=== PATIENT | male | born 1945 | race Caucasian/White ===

== ENCOUNTER 2025-05-26 17:29 | Inpatient (IN) ==
--- NOTE | 2025-05-26 17:57 | Emergency Department Note ---
Impression & Plan Acute decompensated heart failure, Ventricular bigeminy, Pulmonary edema ED Provider Note NAME: OLEKSANDR EDWARDS AGE: 79 SEX: M : 1945 ARRIVES VIA: Walk-In INFORMANT: Patient, ED PROVIDER(S): Pablo Pastor DO CHIEF COMPLAINT: dyspnea HPI: This is a 79-year-old male with the PMHx of ventricular bigeminy, hypertension, hyperlipidemia, hypothyroidism and prostate cancer presenting to [facility] for further evaluation of dyspnea. Patient is accompanied by who provide additional history. Patient states that he has had worsening dyspnea over the last week. Patient reports weight gain of approximately 6 pounds. He reports worsening lower extremity edema. Patient does report some chest tightness over his sternum. 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 He is currently managed with metoprolol succinate 50 mg daily as well as amiodarone 100 mg daily. He follows with cardiology ([facility]) as an outpatient. Patient has not had a cardiac catheterization in the past. Patient reports lightheadedness but no syncopal episodes. Patient denies any recent illness. They deny fever or chills. No cough or congestion. Denies chest pain or palpitations. They deny abdominal pain, nausea and vomiting. No urinary complaints. No recent changes in bowel movements. Patient denies recent changes in medications or OTC supplements. Patient offers no other complaints, today. ADDITIONAL HISTORY OBTAINED: Per HPI Chronic Medical/Social Conditions Affecting Care: Per HPI PAST MEDICAL HISTORY: See Below PAST SURGICAL HISTORY: See Below FAMILY HISTORY: See Below SOCIAL HISTORY: See Below HOME MEDICATIONS: See Below ALLERGIES: See Below VITALS: See Below PHYSICAL EXAMINATION: GENERAL: Sitting up in bed, alert, well appearing, well nourished, no distress, non-toxic EYE EXAM: normal conjunctiva. OROPHARYNX: no exudate, no erythema, lips, buccal mucosa, and tongue normal and mucous membranes are moist NECK: supple, no nuchal rigidity, no adenopathy, non-tender LUNGS: Rales in the bases. Normal chest wall mechanics HEART: no murmurs, bradycardic rate, regular rhythm ABDOMEN: abdomen soft, non-tender, normo-active bowel sounds, no masses, no rebound or guarding. BACK: Back is symmetrical on inspection and there is no deformity, no midline tenderness, no CVA tenderness. SKIN: no rashes and no bruising UPPER EXTREMITIES: upper extremities are grossly normal. LOWER EXTREMITIES: 3+ pitting edema in the LEs. Warm and well perfused. NEURO EXAM: Normal sensorium, GCS 15, normal speech, no gross weakness of arms, no gross weakness of legs. MEDICAL DECISION MAKING: Differential diagnoses includes but not limited to CHF exacerbation, cardiogenic shock, ACS, stable vs unstable angina, dysrhythmia, viral URI, pneumonia, pericarditis, pneumothorax, costochondritis, MSK strain, PE, hypertensive emergency, psychological causes, esophageal reflux, gastritis In summary, this is a 79 year old male who presented with dyspnea. Differential as above. Nursing notes and pertinent past medical records reviewed. Vital signs reviewed and the patient is bradycardic but otherwise afebrile and hemodynamically stable. Patient is not perfusing PVCs. Resting heart rate is in the 30s. History and presentation revealed Patient does have a known history of ventricular bigeminy and is currently on medication control. Patient has had worsening condition of his dyspnea and orthopnea over the past week with weight gain and lower extremity edema. History and physical examination are consistent with a CHF exacerbation. I do not find evidence of cardiogenic shock. Plan for labs and chest x-ray. Will obtain a bedside ultrasound. Patient may benefit from IV diuresis. Given dyspnea and chest tightness, will load with ASA. Diagnostics interpreted by me include EKG and cardiac monitoring as listed below: -Cardiac Monitoring: An order was placed for continuous cardiac monitoring. The monitor shows a rate of 60-70s with ventricular bigeminy. -ECG: EKG independently interpreted by me reveals sinus rhythm at a ventricular rate of 71 bpm. Ventricular bigeminy present. Right bundle branch block present. There is a first-degree AV block present. No significant ST segment changes to suggest STEMI. Patient completed laboratory studies and imaging. Bedside ultrasound independently obtained and interpreted by me reveals mildly reduced ejection fraction with poor windows. Could not appreciate large pericardial effusion. There are B-lines present. IVC is distended. Findings are consistent possible heart failure exacerbation given the patient's symptoms and complaints. Patient is in ventricular bigeminy and he is only perfusing approximately 35 bpm. He is warm and well-perfused and does not appear in shock. Suspect he is likely having heart failure. Do not suspect cardiogenic shock. He is hypertensive. Patient's mentation is normal. He has not had syncopal episodes. His symptoms include dyspnea, orthopnea, chest tightness and lightheadedness. Will collect labs and chest x-ray prior to speaking with cardiology with recommendations. As far as medications at her morning appointment is diuretics but does take amiodarone as well as metoprolol succinate. Results independently interpreted by me are CBC without significant anemia or leukocytosis. Patient's coagulation studies are within normal limits. No significant kidney dysfunction but slightly worsening from prior but this was a number of years ago. No significant electrolyte derangements to suggest an etiology of the patient's ventricular bigeminy. ALT is mildly increased to 90. troponin is within normal limits. BNP is mildly elevated at 427. The patient had a chest x-ray that was independently interpreted by me showing cardiomegaly interstitial edema especially in the lower legs suggest a pulmonary edema. There is some cephalization. This correlates with the patient's ultrasound on physical examination. Though do believe he has a mild some check exacerbation. The patient was managed with load of ASA and diuretics. [facility] cardiology was paged at [phone]. Received call back from Dr. Lucero at 1850. We discussed the patient and will plan for diuresis. Could increase his amiodarone to 200 mg daily. Unclear if this will help with his PVC burden. Likely needs diuresis for improvement given his heart failure exacerbation. Plan to admit to the hospitalist team. The patient was discussed with the [facility] hospitalist team at [phone] and they were agreeable to admit the patient. Ultimately, the decision was made to admit the patient for acute CHF exacerbation with symptomatic ventricular bigeminy. I discussed the case with the hospitalist service via [employer] and they are agreeable to admit the patient to their services. Based on the above, including the patient's age, coexisting illnesses, labs, imaging, and exam findings the decision to treat as an inpatient. I discussed the patient with the hospitalist team who recommended admission to their services. They received the medications, treatments, interventions indicated above and their condition remained guarded. I discussed my findings with the patient and their family and they understand and agree with the treatment plan. All patient / family questions were answered to their satisfaction. Consults/Care Managements Discussions: Per MDM ER treatment provided: See above Procedures:none Critical Care: None The chart was completed utilizing [employer] Speech voice recognition software. Grammatical errors, random word insertions, pronoun errors, and incomplete sentences are an occasional consequence of this system due to software limitations, ambient noise, and hardware issues. Any formal questions or concerns about the content, text, or information contained within the body of this dictation should be directly addressed to the physician for clarification. Past Med/Surg History Problem List (Updated 05/26/25 @ 23:24 by Pablo Pastor DO) Pulmonary edema (Acute) Ventricular bigeminy (Acute) Acute decompensated heart failure (Acute) HTN (hypertension) Ventricular bigeminy Dyspnea Medical History History of prostate cancer dx'd approx 10 years ago. Hx radiation therapy. Hypothyroidism Irregular heart beats Follows with [facility] Cardiology, Dr. Garcia -- per , "he throws extra beats." Macular degeneration Sleep apnea CPAP Surgical History Hx of left cataract extraction History of prostate biopsy History of vasectomy History of tooth extraction History of hernia repair History of esophagogastroduodenoscopy (EGD) History of colonoscopy Family History Other No family history of adverse response to anesthesia Social History Smoking Status: Never smoker Tobacco Type: Cigarettes Second Hand Exposure: No; Do You Dip or Chew Tobacco: No; Hx Alcohol Use: No Hx Substance Use: No Preferred Language: Yakut Communication Ability: Effective Manager Operating Required: No Beliefs That Will Affect Care: None Current Living Situation: Spouse Feels Safe at Home: Yes Safety Concerns: Feels Safe At This Time Assistive Devices: CPAP Allergies Allergies Allergy/AdvReac Type Severity Reaction Status Date / Time No Known Allergies Allergy Verified 05/26/25 19:27 Home Meds Home Medications Medication Instructions Recorded Confirmed amiodarone 100 mg tablet 100 mg PO QDD 08/15/23 05/26/25 levothyroxine 125 mcg tablet 125 mcg PO QAM 08/15/23 05/26/25 metoprolol succinate 25 mg 25 mg PO QDD 08/15/23 05/26/25 tablet,extended release 24 hr vit C 250 mg-vit E 90 mg-zinc 40 1 tab PO BID 08/15/23 05/26/25 mg-copper 1 [id number] capsule (PreserVision AREDS-2) amlodipine 5 mg tablet 5 mg PO QDD 05/26/25 05/26/25 ezetimibe 10 mg tablet 10 mg PO QDD 05/26/25 05/26/25 triamcinolone acetonide 0.025 % 1 applic topical BID 05/26/25 05/26/25 topical cream Results & Data (ED) Vital Signs Vital Signs - 24 hr 05/26/25 17:32 05/26/25 17:40 05/26/25 17:42 Temperature 36.4 C L Temperature Source Temporal Artery Scan Pulse Rate 36 L 75 Pulse Rate [Apical] Pulse Rate from SpO2 Sensor 38 L Respiratory Rate 18 25 H Respiratory Effort / Characteristics Spontaneous Short of Breath Respiratory Depth Shallow Respiratory Pattern Regular Blood Pressure 182/71 H 183/74 H Blood Pressure [Left Arm] Blood Pressure Mean 108 87 Blood Pressure Mean [Left Arm] Blood Pressure Position [Left Arm] Pulse Oximetry 94 95 Oxygen Delivery Method Room Air Sepsis Recent Fever Within 48 Hours No Sepsis New/Unexplained Change in Mental Status N/A Sepsis Action Taken by Nursing No Action Required 05/26/25 17:48 05/26/25 17:49 05/26/25 17:51 Temperature Temperature Source Pulse Rate 75 Pulse Rate [Apical] Pulse Rate from SpO2 Sensor Respiratory Rate Respiratory Effort / Characteristics Short of Breath SOB on Exertion Respiratory Depth Respiratory Pattern Blood Pressure Blood Pressure [Left Arm] Blood Pressure Mean Blood Pressure Mean [Left Arm] Blood Pressure Position [Left Arm] Pulse Oximetry 96 Oxygen Delivery Method Room Air Sepsis Recent Fever Within 48 Hours Sepsis New/Unexplained Change in Mental Status Sepsis Action Taken by Nursing 05/26/25 17:51 05/26/25 18:00 05/26/25 18:02 Temperature Temperature Source Pulse Rate 70 69 Pulse Rate [Apical] Pulse Rate from SpO2 Sensor 38 L 35 L Respiratory Rate 27 H 26 H Respiratory Effort / Characteristics Respiratory Depth Respiratory Pattern Blood Pressure 161/90 H Blood Pressure [Left Arm] Blood Pressure Mean 105 Blood Pressure Mean [Left Arm] Blood Pressure Position [Left Arm] Pulse Oximetry 95 95 Oxygen Delivery Method Sepsis Recent Fever Within 48 Hours Sepsis New/Unexplained Change in Mental Status Sepsis Action Taken by Nursing 05/26/25 18:10 05/26/25 18:18 05/26/25 18:21 Temperature Temperature Source Pulse Rate 67 64 68 Pulse Rate [Apical] Pulse Rate from SpO2 Sensor 32 L 34 L Respiratory Rate 24 20 28 H Respiratory Effort / Characteristics Respiratory Depth Respiratory Pattern Blood Pressure Blood Pressure [Left Arm] Blood Pressure Mean Blood Pressure Mean [Left Arm] Blood Pressure Position [Left Arm] Pulse Oximetry 95 95 94 Oxygen Delivery Method Room Air Sepsis Recent Fever Within 48 Hours Sepsis New/Unexplained Change in Mental Status Sepsis Action Taken by Nursing 05/26/25 18:27 05/26/25 18:35 05/26/25 18:40 Temperature Temperature Source Pulse Rate 63 Pulse Rate [Apical] 63 Pulse Rate from SpO2 Sensor 31 L Respiratory Rate 22 28 H Respiratory Effort / Characteristics Non-Labored Spontaneous Short of Breath Respiratory Depth Respiratory Pattern Blood Pressure Blood Pressure [Left Arm] 137/62 Blood Pressure Mean Blood Pressure Mean [Left Arm] 87 Blood Pressure Position [Left Arm] Semi-fowlers Semi-fowlers Pulse Oximetry 94 95 Oxygen Delivery Method Room Air Sepsis Recent Fever Within 48 Hours Sepsis New/Unexplained Change in Mental Status Sepsis Action Taken by Nursing 05/26/25 18:42 05/26/25 18:45 05/26/25 18:51 Temperature Temperature Source Pulse Rate 62 77 Pulse Rate [Apical] Pulse Rate from SpO2 Sensor 30 L 45 L Respiratory Rate 21 32 H Respiratory Effort / Characteristics Respiratory Depth Respiratory Pattern Blood Pressure 137/62 Blood Pressure [Left Arm] Blood Pressure Mean 102 Blood Pressure Mean [Left Arm] Blood Pressure Position [Left Arm] Pulse Oximetry 96 94 Oxygen Delivery Method Sepsis Recent Fever Within 48 Hours Sepsis New/Unexplained Change in Mental Status Sepsis Action Taken by Nursing 05/26/25 19:00 05/26/25 19:00 05/26/25 19:00 Temperature Temperature Source Pulse Rate Pulse Rate [Apical] Pulse Rate from SpO2 Sensor Respiratory Rate Respiratory Effort / Characteristics Respiratory Depth Respiratory Pattern Blood Pressure 144/78 H 144/78 H 144/78 H Blood Pressure [Left Arm] Blood Pressure Mean 102 102 102 Blood Pressure Mean [Left Arm] Blood Pressure Position [Left Arm] Pulse Oximetry Oxygen Delivery Method Sepsis Recent Fever Within 48 Hours Sepsis New/Unexplained Change in Mental Status Sepsis Action Taken by Nursing 05/26/25 19:00 05/26/25 19:00 05/26/25 19:18 Temperature Temperature Source Pulse Rate 77 64 Pulse Rate [Apical] Pulse Rate from SpO2 Sensor 51 L 32 L Respiratory Rate 34 H 23 Respiratory Effort / Characteristics Respiratory Depth Respiratory Pattern Blood Pressure 144/78 H Blood Pressure [Left Arm] Blood Pressure Mean 102 Blood Pressure Mean [Left Arm] Blood Pressure Position [Left Arm] Pulse Oximetry 95 95 Oxygen Delivery Method Sepsis Recent Fever Within 48 Hours Sepsis New/Unexplained Change in Mental Status Sepsis Action Taken by Nursing 05/26/25 19:33 05/26/25 19:42 05/26/25 20:09 Temperature Temperature Source Pulse Rate 59 L 59 L 73 Pulse Rate [Apical] Pulse Rate from SpO2 Sensor 29 L Respiratory Rate 24 26 H 22 Respiratory Effort / Characteristics Respiratory Depth Respiratory Pattern Blood Pressure Blood Pressure [Left Arm] Blood Pressure Mean Blood Pressure Mean [Left Arm] Blood Pressure Position [Left Arm] Pulse Oximetry 95 Oxygen Delivery Method Sepsis Recent Fever Within 48 Hours Sepsis New/Unexplained Change in Mental Status Sepsis Action Taken by Nursing 05/26/25 20:21 Temperature Temperature Source Pulse Rate 64 Pulse Rate [Apical] Pulse Rate from SpO2 Sensor 33 L Respiratory Rate 19 Respiratory Effort / Characteristics Respiratory Depth Respiratory Pattern Blood Pressure Blood Pressure [Left Arm] Blood Pressure Mean Blood Pressure Mean [Left Arm] Blood Pressure Position [Left Arm] Pulse Oximetry 95 Oxygen Delivery Method Sepsis Recent Fever Within 48 Hours Sepsis New/Unexplained Change in Mental Status Sepsis Action Taken by Nursing Laboratory Data 05/26/25 17:45 05/26/25 17:45 Lab Results 05/26/25 Range/Units 17:45 WBC 8.89 (4.8-10.8) K/ul RBC 4.72 (4.70-6.10) M/uL Hgb 14.9 (14.0-18.0) g/dl Hct 45.5 (42.0-52.0) % MCV 96.4 (80.0-100.0) fL MCH 31.6 (25.0-34.0) pg MCHC 32.7 (32.0-36.0) g/dL RDW Std Deviation 52.1 H (36.4-46.3) fL RDW Coeff of Tete 14.6 H (11.5-14.5) % Plt Count 231 (130-400) K/uL MPV 10.6 (9.4-12.4) fL Immature Gran % (Auto) 0.3 % Neut % (Auto) 58.2 % Lymph % (Auto) 26.0 % [place] % (Auto) 11.4 % Eos % (Auto) 3.4 % Baso % (Auto) 0.7 % Neut # (Auto) 5.18 (1.40-6.50) K/uL Lymph # (Auto) 2.31 (1.20-3.40) K/uL [place] # (Auto) 1.01 H (0.11-0.59) K/uL Eos # (Auto) 0.30 (0.00-0.50) K/uL Baso # (Auto) 0.06 (0.00-0.20) K/uL Immature Gran # (Auto) 0.03 (0.01-0.20) K/uL PT 10.7 (9.0-12.0) Seconds INR 1.0 (0.9-1.1) APTT 27 (21-31) Seconds PTT Ratio 1.0 Sodium 141 (136-145) mmol/L Potassium 4.3 (3.5-5.1) mmol/L Chloride 108 H (98-107) mmol/L Carbon Dioxide 27 (21-32) mmol/L Anion Gap 6 (3-11) BUN 24 H (6-23) mg/dl Creatinine 1.20 (0.6-1.4) mg/dl Est Cr Clr Drug Dosing 62.6 ml/min eGFR 60.75 BUN/Creatinine Ratio 20.0 (10-20) Glucose 140 H (70-99(Fasting)) mg/dl Calcium 8.5 L (8.6-10.3) mg/dl Phosphorus 3.5 (2.5-4.9) mg/dl Magnesium 2.3 (1.7-2.4) mg/dl Total Bilirubin 0.6 (0.2-1.0) mg/dl AST 36 (13-39) U/L ALT 90 H (7-52) U/L Alkaline Phosphatase 73 (34-104) U/L Troponin I High Sens 11.5 (0-20) pg/ml B-Natriuretic Peptide 427 H (0-100) pg/ml Total Protein 6.8 (6.0-8.3) gm/dl Albumin 3.8 (3.4-5.0) gm/dl Globulin 3.0 (2.5-4.0) gm/dl Albumin/Globulin Ratio 1.3 (0.9-2) Lipase 16 (11-82) U/L TSH 2.437 (0.300-4.500) uIu/ml Administered Medications Discontinued Medications Aspirin (Aspirin Chew 324 Mg) 324 mg PO NOW STA Stop: 05/26/25 18:19 Last Admin: 05/26/25 18:32 Dose: 324 mg Documented By: COREY Furosemide (Furosemide 40 Mg/4 Ml Vial) 40 mg IV ONE ONE Stop: 05/26/25 18:56 Last Admin: 05/26/25 19:06 Dose: 40 mg Documented By: COREY Imaging Data Radiologist's Impression: Chest X-Ray 05/26/25 17:54 Clinical History: Shortness of breath Technique: A frontal view the chest was obtained Comparison is made to the prior examination dated 03/25/2025 Findings: There are no confluent pulmonary infiltrates. The heart is mildly enlarged. No pleural effusion or pneumothorax is seen. There is suspected mild pulmonary edema No fracture is noted. No foreign body is seen Impression: Cardiomegaly and mild pulmonary edema ACT 112: Positive. There are findings on this exam that require communication between the performing entity and the patient following Patient Test Result Information Act ([place] ACT 112) guidelines. Electronically signed by Iker Vizcarra 05-26-2025 6:39 PM Discharge Plan Visit Data Chief Complaint: Cardiac Assessment Stated Complaint: FLUID OVER HEART, REF BY ED Provider: Pablo Pastor Discharge Problem: Acute decompensated heart failure, Ventricular bigeminy, Pulmonary edema Patient Disposition: Admitted As Inpatient Condition: Serious Discharge Instructions Interventions: ED Discharge Assessment Last Done: 05/26/25 22:08
[2025-05-26 18:12] LABS: Hematocrit (blood only) 45.5 % (42.0-52.0); Hemoglobin 14.9 g/dl (14.0-18.0); Immature Granulocytes # (auto) 0.03 K/uL (0.01-0.20); Immature Granulocytes % (auto) 0.3 %; Mean Corpuscular Hemoglobin 31.6 pg (25.0-34.0); Mean Corpuscular Volume 96.4 fL (80.0-100.0); Platelet Count 231 K/uL (130-400); RDW Standard Deviation 52.1 fL (36.4-46.3); Red Blood Count 4.72 M/uL (4.70-6.10); White Blood Count 8.89 K/ul (4.8-10.8)
[2025-05-26 18:29] LABS: Alanine Aminotransferase 90.0 U/L (7-52); Albumin Globulin Ratio 1.3 (0.9-2); Alkaline Phosphatase 73.0 U/L (34-104); Anion Gap 6.0 (3-11); Bilirubin,Total 0.6 mg/dl (0.2-1.0); Blood Urea Nitrogen 24.0 mg/dl (6-23); Calcium 8.5 mg/dl (8.6-10.3); Carbon Dioxide 27.0 mmol/L (21-32); Chloride 108.0 mmol/L (98-107); Creatinine Clr Calc Pharmacy 62.6 ml/min; Globulin 3.0 gm/dl (2.5-4.0); Glucose 140.0 mg/dl (70-99(Fasting)); Lipase 16.0 U/L (11-82); Magnesium 2.3 mg/dl (1.7-2.4); Potassium 4.3 mmol/L (3.5-5.1); Sodium 141.0 mmol/L (136-145); Total Protein 6.8 gm/dl (6.0-8.3)
[2025-05-26] MEDS: ASPIRIN CHEW 324 MG PO STA (18:32)
[2025-05-26 18:39] LABS: INR 1.0 (0.9-1.1); Partial Thromboplastin Time 27 Seconds (21-31); Prothrombin Time 10.7 Seconds (9.0-12.0)
--- NOTE | 2025-05-26 18:40 | XRay Report ---
Clinical History: Shortness of breath Technique: A frontal view the chest was obtained Comparison is made to the prior examination dated 03/25/2025 Findings: There are no confluent pulmonary infiltrates. The heart is mildly enlarged. No pleural effusion or pneumothorax is seen. There is suspected mild pulmonary edema No fracture is noted. No foreign body is seen Impression: Cardiomegaly and mild pulmonary edema ACT 112: Positive. There are findings on this exam that require communication between the performing entity and the patient following Patient Test Result Information Act ([place] ACT 112) guidelines. Electronically signed by Iker Vizcarra 05-26-2025 6:39 PM
[2025-05-26 18:53] LABS: Thyroid Stimulating Hormone 2.437 uIu/ml (0.300-4.500)
[2025-05-26] MEDS: FUROSEMIDE 40 MG/4 ML VIAL IV ONE (19:06)
--- NOTE | 2025-05-26 19:25 | History & Physical Report ---
Date of Service May 26, 2025 Assessment & Plan (1) Dyspnea: (2) Ventricular bigeminy: (3) HTN (hypertension): (4) Sleep apnea: (5) Hypothyroidism: (6) Macular degeneration: Plan Pt is a 79 yo male with PMH of hypothyroidism, ventricular bigeminy, macular degeneration, sleep apnea, HTN, HLD, and hx of prostate CA who presented to ED with progressive SOB over the past 1-2 weeks after drinking more liquids at home due to pt's assumption that he has a kidney stone. Pt does not have a known history of CHF. #Dyspnea/ CHF? Pt with progressive SOB, LE edema and abdominal distension after increasing fluids at home. In the show labs notable for mildly elevated Cr at 1.2, AST of 90 and BNP at 427. WBC, Na, K+, troponin, AST, and alk phos are within normal limits. CXR read as pulmonary edema and cardiomegaly. Vitals are stable and continuous bigeminy noted on ECG and telemetry. Pt is followed by [facility] cardiology as an outpatient. After review of [facility] records, found that last echo was in Aug which found severe hypokinesis at anterior and anterolateral as well as mild Mitral and tricuspid regurg. No noted history of TX found. Pt received 20mg IV lasix and aspirin in ED. Pt is lasix naive and urinating relatively frequently without difficulty. Will hold on consulting cardiology until after results from echocardiogram. - Admit to [facility] for continued cardiac monitoring - Ordered Echocardiogram - Consider spot dose of 20mg IV lasix as needed for continue diuresis - Strict I/Os - Daily weights #Urinary changes Denies UTI symptoms, but recent history of difficulty passing urine. Pt has history of prostate cancer which was surgically treated and in remission. Pt does not report history of urinary retention. No reported evidence of passed stone, but continues with urine odor. - Ordered UA with reflex culture - May consider further imaging if pt has further symptoms - May consider antibiotic treatment pending culture. #Chronic ventricular bigeminy Stable on ECG and telemetry. - Continue po metoprolol 25mg qd - Continue po amiodarone 100mg qd #Chronic conditions HTN- continue po amlodipine 5mg qd HLD- continue po ezetimibe 10mg qd Hypothyroidism- continue po levothyroxine 125mcg Macular degeneration- Continue PreserVision BID JACK- continue CPAP overnight Dispo: Med tele Diet: heart healthy DVT prophylaxis: SCDs Code: Full History of Present Illness Chief Complaint: Dyspnea Primary Care Provider: Dipika Gabriel Pt is a 79 yo male with PMH of hypothyroidism, ventricular bigeminy, macular degeneration, sleep apnea, HTN, HLD, and hx of prostate CA who presented to ED with progressive SOB. Pt is at bedside who assisted with HPI. Pt states all symptoms started 2 weeks ago with difficulty urinating with assumption that pt had a kidney stone. Pt reports he was trying to drink more fluids to flush out the stone and began having more distension in his abdomen and swelling in his lower legs. These symptoms progressed to feeling he was gaining weight and then intermittent SOB. Pt found that laying flat or reclined was more difficult to breath and sitting up provided some relief. Pt also noted increased SOB with exertional activities such as walking community distances or up a flight of stairs. Pt follows with [facility] cardiology and was scheduled to have an echocardiogram on Jun 05, 2025. Pt has had echos in the past, but it has reportedly been a couple years. Pt denies chest pain or tightness, cough, dizziness/lightheadedness, fever/chills, abdominal pain, nausea, vomiting, diarrhea, constipation, numbness/tingling, new myalgias/arthralgias Pt says that while his ability to urinate has improved over the last week, his urine continues with a "funny smell". He denies dysuria, hematuria, seeing a stone in his urine or suprapubic pain/tenderness. Allergies Allergy/AdvReac Type Severity Reaction Status Date / Time No Known Allergies Allergy Verified 05/26/25 19:27 Home Medications Medication Instructions Recorded Confirmed Type amiodarone 100 mg tablet 100 mg PO QDD 08/15/23 05/26/25 History levothyroxine 125 mcg tablet 125 mcg PO QAM 08/15/23 05/26/25 History metoprolol succinate 25 mg 25 mg PO QDD 08/15/23 05/26/25 History tablet,extended release 24 hr vit C 250 mg-vit E 90 mg-zinc 40 1 tab PO BID 08/15/23 05/26/25 History mg-copper 1 [id number] capsule (PreserVision AREDS-2) amlodipine 5 mg tablet 5 mg PO QDD 05/26/25 05/26/25 History ezetimibe 10 mg tablet 10 mg PO QDD 05/26/25 05/26/25 History triamcinolone acetonide 0.025 % 1 applic topical BID 05/26/25 05/26/25 History topical cream Past Med/Surg History Problem List (Updated 05/26/25 @ 20:44 by Mary Gregory DO) HTN (hypertension) Ventricular bigeminy Dyspnea Medical History History of prostate cancer dx'd approx 10 years ago. Hx radiation therapy. Hypothyroidism Irregular heart beats Follows with [facility] Cardiology, Dr. Garcia -- per , "he throws extra beats." Macular degeneration Sleep apnea CPAP Surgical History Hx of left cataract extraction History of prostate biopsy History of vasectomy History of tooth extraction History of hernia repair History of esophagogastroduodenoscopy (EGD) History of colonoscopy Family History Other No family history of adverse response to anesthesia Social History Smoking Status: Never smoker Tobacco Type: Cigarettes Second Hand Exposure: No; Do You Dip or Chew Tobacco: No; Hx Alcohol Use: No Hx Substance Use: No Preferred Language: British Communication Ability: Effective Binding Printer Required: No Beliefs That Will Affect Care: None Current Living Situation: Spouse Feels Safe at Home: Yes Safety Concerns: Feels Safe At This Time Assistive Devices: CPAP Review of Systems Review of Systems: As per HPI Physical Exam Physical Exam: Gen: NAD HENT: Normocephalic, atraumatic. External ear without deformities. Trachea midline, no thyromegaly Cardio: RRR, no murmurs or clicks. 3+ pitting edema at bilateral lower extremities Resp: Scattered expiratory wheezing, Equal bilateral chest rise, no increased work of breathing GI: Mildly distended, soft, non tender, normoactive bowel sounds MSK: Moving all 4 extremities independently Skin: Clean, dry, of normal skin tone, Neuro: A & O x 3, normal affect Results & Data Results & Data Vital Signs (Past 12 Hours) Vital Signs Temp Pulse Pulse Resp BP BP Pulse Ox 05/26/25 19:00 77 34 H 95 05/26/25 19:00 144/78 H 05/26/25 19:00 144/78 H 05/26/25 19:00 144/78 H 05/26/25 19:00 144/78 H 05/26/25 18:51 77 32 H 94 05/26/25 18:45 62 21 96 05/26/25 18:42 137/62 05/26/25 18:40 137/62 05/26/25 18:35 63 28 H 95 05/26/25 18:27 63 22 94 05/26/25 18:21 68 28 H 94 05/26/25 18:18 64 20 95 05/26/25 18:10 67 24 95 05/26/25 18:02 161/90 H 05/26/25 18:00 69 26 H 95 05/26/25 17:51 70 27 H 95 05/26/25 17:49 96 05/26/25 17:48 75 05/26/25 17:42 75 25 H 95 05/26/25 17:40 183/74 H 05/26/25 17:32 36.4 C L 36 L 18 182/71 H 94 O2 Del Method 05/26/25 19:00 05/26/25 19:00 05/26/25 19:00 05/26/25 19:00 05/26/25 19:00 05/26/25 18:51 05/26/25 18:45 05/26/25 18:42 05/26/25 18:40 05/26/25 18:35 Room Air 05/26/25 18:27 05/26/25 18:21 05/26/25 18:18 05/26/25 18:10 Room Air 05/26/25 18:02 05/26/25 18:00 05/26/25 17:51 05/26/25 17:49 Room Air 05/26/25 17:48 05/26/25 17:42 05/26/25 17:40 05/26/25 17:32 Room Air Laboratory Results Abnormal lab results 05/26/25 Range/Units 17:45 RDW Std Deviation 52.1 H (36.4-46.3) fL RDW Coeff of Tete 14.6 H (11.5-14.5) % [place] # (Auto) 1.01 H (0.11-0.59) K/uL Chloride 108 H (98-107) mmol/L BUN 24 H (6-23) mg/dl Glucose 140 H (70-99(Fasting)) mg/dl Calcium 8.5 L (8.6-10.3) mg/dl ALT 90 H (7-52) U/L B-Natriuretic Peptide 427 H (0-100) pg/ml Diagnostic Findings Chest X-Ray 05/26/25 17:54 Clinical History: Shortness of breath Technique: A frontal view the chest was obtained Comparison is made to the prior examination dated 03/25/2025 Findings: There are no confluent pulmonary infiltrates. The heart is mildly enlarged. No pleural effusion or pneumothorax is seen. There is suspected mild pulmonary edema No fracture is noted. No foreign body is seen Impression: Cardiomegaly and mild pulmonary edema ACT 112: Positive. There are findings on this exam that require communication between the performing entity and the patient following Patient Test Result Information Act ([place] ACT 112) guidelines. Electronically signed by Iker Vizcarra 05-26-2025 6:39 PM Supervising Physician Co-Signing Physician Notes Patient seen and examined, chart reviewed, case discussed with Dr. Gregory and I agree with the assessment and plan as above. In brief, patient is an 79yo male with history of ventricular bigeminy on Metoprolol and Amiodarone, HTN, HLP presenting with several days of SOB, edema, weight gain and orthopnea. Patient thought he may have a kidney stone so has been increasing his fluids. On physical exam patient is afebrile, hypertensive otherwise HD stable Ventricular bigeminy noted on telemetry - no VT Skin- no rash HEENT - MMM, Neck supple Heart - +S1/S2, regularly irregular, distant heart sounds, soft CORTEZ at LSB Lungs - diminished breath sounds in bases, no rales/rhonchi/wheezes Abd - soft, NT/ND Ext - warm, palpable pulses, 1+ pitting edema of bilateral LE Labs and images reviewed CXR with cardiomegaly and mild pulmonary edema As above, Dr. Gregory reviewed patient's last echo from August 2023 which revealed several areas of hypokinesis as well as mild MR and TR and low normal EF of 50% Assessment/Plan #Dyspnea/edema/orthopnea - suspect volume overload. Possibly in part due to patient's recent increase in fluid intake, more concerning for possible CHF -Admit to medical with telemetry -Patient was given Lasix 40mg IV at 19:06 and is diuresing well - he is diuretic naive. Will hold additional diuretic overnight with plans to dose again in AM pending results of BMP and clinical status -Monitor daily weights, strict I/Os -Repeat 2D echo Remainder as above Resident Activity Tracking Resident Involvement: Resident Care Provided Care Provided: Adult Hospital Medicine
[2025-05-26 22:22] LABS: Appearance Urine Clear (Clear); Bacteria Urine Automated 4+ (None Seen); Cast Urine Automated 0-2 /lpf (0-2); Epithelial Cell Urine Auto 0-2 /hpf (0-2); Glucose Urine UA Negative (Negative); RBC Urine Automated 0-2 /hpf (0-2); WBC Urine Automated 21-50 /hpf (0-5)
[2025-05-26] MEDS ORDERED: MELATONIN 3 MG TAB PO PRN (22:24)
[2025-05-26] MEDS ORDERED: ACETAMINOPHEN 325 MG TAB PO PRN (22:24)
[2025-05-26] MEDS ORDERED: POLYETHYLENE (MIRALAX) 17 GM PACK PO PRN (22:24)
[2025-05-26] MEDS ORDERED: ONDANSETRON INJ 2 MG/ML 2 ML VIAL IV PRN (22:24)
[2025-05-26] MEDS: CEROVITE ADV FORMULA TAB PO SCH (22:47)
--- NOTE | 2025-05-26 22:56 | Billing Data ---
Date of Service May 26, 2025 Coding Level of Care Code 20738 INT INP/OBS CARE
[2025-05-26] MEDS: cefTRIAXone SODIUM 2,000 MG/50 ML BAG IV STA (23:45)
[2025-05-27] MEDS: LEVOTHYROXINE SODIUM 125 MCG TABLET PO SCH (06:12)
[2025-05-27 06:51] LABS: Alanine Aminotransferase 77.0 U/L (7-52); Albumin Globulin Ratio 1.3 (0.9-2); Alkaline Phosphatase 61.0 U/L (34-104); Anion Gap 8.0 (3-11); Bilirubin,Total 1.0 mg/dl (0.2-1.0); Blood Urea Nitrogen 20.0 mg/dl (6-23); Calcium 8.7 mg/dl (8.6-10.3); Carbon Dioxide 26.0 mmol/L (21-32); Chloride 108.0 mmol/L (98-107); Creatinine Clr Calc Pharmacy 74.1 ml/min; Globulin 2.9 gm/dl (2.5-4.0); Glucose 96.0 mg/dl (70-99(Fasting)); Potassium 4.0 mmol/L (3.5-5.1); Sodium 142.0 mmol/L (136-145); Total Protein 6.8 gm/dl (6.0-8.3)
--- NOTE | 2025-05-27 09:19 | Cardiology Consultation ---
Date of Consultation May 27, 2025 Assessment & Plan (1) HFrEF (heart failure with reduced ejection fraction): (2) Frequent unifocal PVCs: (3) Morbid obesity: Plan Despite his size, he tells me that up until recently, he was walking and riding a bike daily. Because of his baseline ECG will order Lexiscan nuclear stress to assess for ischemia. Would add ARB for LV dysfunction along with titrate up on the metoprolol for CHF. Would temporarily increase amio to 200mg daily. Cont with loop diuretic. If renal function allows, consider adding aldactone as well. Depending on the results further rec will follow. 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 Will have him follow up with EP post DC as well. ? Consider cardiac MRI as outpatient as well. Thanks you for the consult. History of Present Illness Reason for Consultation: SOB CHF Attending Physician: Ulysses Buckley MD History of Present Illness Mr. Zarate is a very nice 79 y/o man known to [facility] for frequent PVCs for the last several years. He has had several ECHOs done over the last few years showing variable EF. The PVCs make exact estimate of his EF somewhat difficult. He has had MCOT monitoring done showing as much as 40% PVCs, and since on amiodarone down to about 10% as per recent OP records. He called in to the office last week with sudden increase in his SOB , his appt was moved up and his ECHO was scheduled, unfortunately, he cont to have SOB so was directed to the ER. He was found to have NSR with frequent PVCs and ventricular bigeminy along with RBBB and LAHB. He is ECG is similar to the prior one. His ECHO which I reviewed today again shows variable EF with beat to beat variability due to the PVCs. The EF is around 35-40%. His RV is also quite dilate, which may also be related to his obesity as well as his JACK. He was given IV lasix for the SOB and increased edema and is feeling better, but still not at his baseline. As far as I can tell, he has not had an ischemic eval. Will schedule him for a Lexiscan nuclear stress to assess for ischemia while treating his CHF. Allergies Allergy/AdvReac Type Severity Reaction Status Date / Time No Known Allergies Allergy Verified 05/26/25 19:27 Home Medications Medication Instructions Recorded Confirmed Type amiodarone 100 mg tablet 100 mg PO QDD 08/15/23 05/26/25 History levothyroxine 125 mcg tablet 125 mcg PO QAM 08/15/23 05/26/25 History metoprolol succinate 25 mg 25 mg PO QDD 08/15/23 05/26/25 History tablet,extended release 24 hr vit C 250 mg-vit E 90 mg-zinc 40 1 tab PO BID 08/15/23 05/26/25 History mg-copper 1 [id number] capsule (PreserVision AREDS-2) amlodipine 5 mg tablet 5 mg PO QDD 05/26/25 05/26/25 History ezetimibe 10 mg tablet 10 mg PO QDD 05/26/25 05/26/25 History triamcinolone acetonide 0.025 % 1 applic topical BID 05/26/25 05/26/25 History topical cream Patient History Medical History History of prostate cancer dx'd approx 10 years ago. Hx radiation therapy. Hypothyroidism Irregular heart beats Follows with [facility] Cardiology, Dr. Garcia -- per , "he throws extra beats." Macular degeneration Sleep apnea CPAP Surgical History Hx of left cataract extraction History of prostate biopsy History of vasectomy History of tooth extraction History of hernia repair History of esophagogastroduodenoscopy (EGD) History of colonoscopy Family History Other No family history of adverse response to anesthesia Social History Smoking Status: Never smoker Tobacco Type: Cigarettes Second Hand Exposure: No; Do You Dip or Chew Tobacco: No; Hx Alcohol Use: No Hx Substance Use: No Preferred Language: Latvian Communication Ability: Effective [employer] Internship Required: No Beliefs That Will Affect Care: None Current Living Situation: Spouse Feels Safe at Home: Yes Assistive Devices: CPAP Review of Systems Review of Systems: All systems reviewed & are unremarkable except as noted in HPI & below Physical Exam Physical Exam: pleasant, jovial in NAD Neck: obese neck, ?JVD Respiratory: rales at bases b/l Cardiovascular: frequent ectopy CORTEZ at base c/w aortic sclerosis +1 edema b/l pitting R>L Results & Data Vital Signs (Past 12 Hours) Vital Signs Temp Pulse Pulse Resp BP BP Pulse Ox 05/27/25 07:40 36.7 C 71 22 174/74 H 94 05/27/25 05:41 64 05/27/25 03:14 36.4 C L 61 21 140/66 94 05/26/25 23:26 66 05/26/25 22:40 05/26/25 22:30 36.5 C 65 20 176/68 H 94 05/26/25 22:25 36.5 C 65 20 176/68 H 93 05/26/25 22:08 36.6 C 67 24 160/70 H 93 05/26/25 21:41 64 O2 Del Method 05/27/25 07:40 Room Air 05/27/25 05:41 05/27/25 03:14 Room Air 05/26/25 23:26 05/26/25 22:40 Room Air 05/26/25 22:30 Room Air 05/26/25 22:25 Room Air 05/26/25 22:08 Room Air 05/26/25 21:41 Laboratory Results Abnormal lab results 05/26/25 05/26/25 05/27/25 Range/Units 17:45 20:30 05:43 RDW Std Deviation 52.1 H (36.4-46.3) fL RDW Coeff of Tete 14.6 H (11.5-14.5) % [place] # (Auto) 1.01 H (0.11-0.59) K/uL Chloride 108 H 108 H (98-107) mmol/L BUN 24 H (6-23) mg/dl Glucose 140 H (70-99(Fasting)) mg/dl Calcium 8.5 L (8.6-10.3) mg/dl ALT 90 H 77 H (7-52) U/L B-Natriuretic Peptide 427 H (0-100) pg/ml Urine Blood 1+ H (Negative) Ur Leukocyte Esterase 2+ H (Negative) Urine WBC (Auto) 21-50 H (0-5) /hpf Urine Bacteria (Auto) 4+ H (None Seen) Diagnostic Findings ECHO as above Medications Administered Current Inpatient Medications Acetaminophen (Acetaminophen 325 Mg Tab) 650 mg PO Q4H PRN PRN Reason: Pain or Fever Stop: 06/25/25 22:23 Amiodarone HCl (Amiodarone 200 Mg Tab) 100 mg PO QDD [facility] Stop: 06/26/25 16:29 Amlodipine Besylate (Amlodipine Besylate 5 Mg Tab) 5 mg PO QDD [facility] Stop: 06/26/25 16:29 Ezetimibe (Ezetimibe 10 Mg Tab) 10 mg PO QDD [facility] Stop: 06/26/25 16:29 Ceftriaxone Sodium (Rocephin) 2,000 mg in 50 mls @ 100 mls/hr IV Q24H [facility] Stop: 06/01/25 20:59 Levothyroxine Sodium (Levothyroxine Sodium 125 Mcg Tablet) 125 mcg PO DAILYBB [facility] Stop: 06/26/25 06:29 Last Admin: 05/27/25 06:12 Dose: 125 mcg Melatonin (Melatonin 3 Mg Tab) 3 mg PO HS PRN PRN Reason: Sleep Stop: 06/25/25 22:23 Metoprolol Succinate (Metoprolol Succ 25mg Ext Rel Tab) 25 mg PO QDD [facility] Stop: 06/26/25 16:29 Multivitamins/Minerals (Cerovite Adv Formula Tab) 1 tab PO BID [facility] Stop: 06/25/25 22:23 Last Admin: 05/27/25 08:10 Dose: 1 tab Ondansetron HCl (Ondansetron Inj 2 Mg/Ml 2 Ml Vial) 4 mg IV Q6H PRN PRN Reason: Nausea Stop: 06/25/25 22:23 Polyethylene Glycol (Polyethylene (Miralax) 17 Gm Pack) 17 gm PO DAILY PRN PRN Reason: Constipation Stop: 06/25/25 22:23 ECG Additional Comments: NSR with PVCs RBBB LAHB bigemkristiny
[2025-05-27] MEDS: VALSARTAN 80 MG TAB PO SCH (11:27)
--- NOTE | 2025-05-27 11:31 | Hospitalist Progress Note ---
Date of Service May 27, 2025 Assessment & Plan (1) Dyspnea: (2) Ventricular bigeminy: (3) HTN (hypertension): (4) Sleep apnea: (5) Hypothyroidism: (6) Macular degeneration: (7) Bacteriuria: (8) HFrEF (heart failure with reduced ejection fraction): (9) Ventricular bigeminy: Plan Pt is a 79 yo male with PMH of hypothyroidism, ventricular bigeminy, macular degeneration, sleep apnea, HTN, HLD, and hx of prostate CA who presented to ED with progressive SOB over the past 1-2 weeks after drinking more liquids at home due to pt's assumption that he has a kidney stone. Pt does not have a known history of CHF. #Dyspnea/Acute HFrEF Pt with progressive SOB, LE edema and abdominal distension after increasing fluids at home. In the show labs notable for mildly elevated Cr at 1.2, ALT of 90 ->78 and BNP at 427. WBC, Na, K+, troponin, AST, and alk phos are within normal limits. CXR read as pulmonary edema and cardiomegaly. Vitals are stable and continuous bigeminy noted on ECG and telemetry. Pt is followed by [facility] cardiology as an outpatient With VITALY Henriquez and Dr. Sandoval - Previous echocardiogram (2022): EF 40-45%, Severe hypokinesis at anterior and anterolateral as well as mild Mitral and tricuspid regurg. No noted history of prior HI reported. - Cardiology consulted for worsening HF with new echocardiogram 05/27/25 completed: EF 35-40% with severely dilated left ventricle, moderate to severe dilation of right ventricle and weakened right ventricular systolic function, and grade 1 diastolic dysfunction - Strict I/Os - Daily weights - heart healthy diet and sodium restriction < 2g per day - 40mg Lasix given in ED with partial resolution of SOB, continue Lasix 40mg QAM - Cardiology input appreciated, report potential PVC cardiomyopathy contributing to symptoms recommend: - Lexiscan nuclear stress test to assess for ischemia - ARB for LV dysfunction, increased metoprolol/amiodarone dosages - Continuation of loop diuretic and addition of Aldactone, will start at 25mg daily patient renal function stable - Upon d/c 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 Pt has history of prostate cancer which was surgically treated and in remission. Pt does not report history of urinary retention. No reported evidence of passed stone, per patient mild burning, straining and dysuria during micturition that resolved 3 days ago - UA with reflex culture positive for WBC, 4+ bacteria, 2+ LE - IV ceftriaxone 2g x1 given in ED - Likely no additional treatment as symptoms have resolved, but will follow culture data #Chronic ventricular bigeminy Stable on ECG and telemetry. Increased dosages of rate control agents - Continue po metoprolol, increased to 50 mg - Continue po amiodarone, increased to 200 mg temporarily #Chronic conditions HTN- continue po amlodipine 5mg qd HLD- continue po ezetimibe 10mg qd Hypothyroidism- continue po levothyroxine 125mcg Macular degeneration- Continue PreserVision BID JACK- continue CPAP overnight Dispo: Med tele Diet: heart healthy DVT prophylaxis: SCDs Code: Full Admission and Anticipated Discharge Date Admission Date: May 26, 2025 Supervising Physician Co-Signing Physician Notes Resident Physician Supervision Note: I personally examined the patient and verified all fernandez points of history and exam, discussed case, and agree with decision making with Dr. Leal I discussed the case with the resident and agree with the findings and plan as documented in the note. Patient is seen in the company of his . All questions were answered at the bedside. Patient feels much improved. Patient states he has had a few week insidious onset of increasing dyspnea which was first noticed by him being on the treadmill. He denies any recent chest pain or pressure he had negative serology for acute coronary syndrome on admission. He did of good diuresis with Lasix having 2500 mL out more than an Examination finds his heart to be distant but regular his lungs actually are fairly clear with good excursion extremities are 1+ edema Reviewed CBC and chemistry reviewed cardiac biomarkers Discussed the case with Dr. Altamirano [facility] cardiology Acute on chronic heart failure reduced ejection fraction treated with intravenous Lasix Plans to progress to higher level of guideline based medications given his decrease in ejection fraction with plans for nuclear study to evaluate if there is profound ischemia or hibernating myocardium. Patient has significant ectopy and this could be a cardiomyopathy from his ectopy. Patient also has sleep apnea and does have some right-sided heart failure changes due to this and this could be also part of why he has peripheral edema. Any exceptions or clarifications are listed here: Documented By: Ulysses Buckley MD Subjective Tono Zarate is a 79 y/o M recently admitted due to worsening SOB over the past 3 weeks and urinary strain, dysuria and burning that resolved 3 days ago. Patient feels much better today after treatment in the ED with Lasix 40mg, and still feels mild SOB while speaking, but reports that he is typically active and does not normally feel SOB with rest or exertion. Patient denies chest pain, palpitations, cough, wheeze, abdominal pain, nausea, vomiting, headache, vision changes, fever and chills. Patient remains afebrile and hemodynamically stable. Physical Exam Physical Exam: General: patient resting comfortably, NAD, non-toxic in appearance, answers questions appropriately. Skin: warm, dry, intact HEENT: NC/AT, anicteric sclera, conjunctiva without injection, moist mucus membranes. Heart: +S1/S2, regular, no m/r/g Lungs: equal air entry bilaterally, no rhonchi/wheezes, mild rales present in LLL with remaining lobes clear to auscultation Abd: +BS, soft, NT/ND Ext: warm, no clubbing/cyanosis or edema Neuro: nonfocal, speech intact, no facial droop, moving all extremities. Results & Data Results & Data Vital Signs (Past 12 Hours) Vital Signs Temp Pulse Pulse Resp BP Pulse Ox O2 Del Method 05/27/25 07:40 36.7 C 71 22 174/74 H 94 Room Air 05/27/25 05:41 64 05/27/25 03:14 36.4 C L 61 21 140/66 94 Room Air Resident Activity Tracking Resident Involvement: Resident Care Provided Care Provided: Adult Hospital Medicine
[2025-05-27] MEDS: SPIRONOLACTONE 25 MG TAB PO ONE (13:14)
[2025-05-27] MEDS ORDERED: METOPROLOL SUCC 25MG EXT REL TAB PO SCH (16:30)
[2025-05-27] MEDS ORDERED: AMIODARONE 200 MG TAB PO SCH (16:30)
[2025-05-27] MEDS: EZETIMIBE 10 MG TAB PO SCH (16:44)
[2025-05-27] MEDS: METOPROLOL SUCC 50MG EXT REL TAB PO SCH (16:44)
[2025-05-27] MEDS: AMIODARONE 200 MG TAB PO SCH (16:45)
[2025-05-27] MEDS: cefTRIAXone SODIUM 2,000 MG/50 ML BAG IV SCH (20:01)
[2025-05-28 06:55] LABS: Alanine Aminotransferase 54.0 U/L (7-52); Alkaline Phosphatase 60.0 U/L (34-104); Anion Gap 6.0 (3-11); Bilirubin,Total 1.0 mg/dl (0.2-1.0); Blood Urea Nitrogen 21.0 mg/dl (6-23); Calcium 9.0 mg/dl (8.6-10.3); Carbon Dioxide 27.0 mmol/L (21-32); Chloride 107.0 mmol/L (98-107); Cholesterol 170.0 mg/dl (0-200); Creatinine Clr Calc Pharmacy 77.7 ml/min; Glucose 93.0 mg/dl (70-99(Fasting)); HDL Cholesterol 54.0 mg/dl; Potassium 4.5 mmol/L (3.5-5.1); Sodium 140.0 mmol/L (136-145); Total Protein 6.6 gm/dl (6.0-8.3); Triglycerides 111.0 mg/dl (0-150)
[2025-05-28 07:09] LABS: Thyroid Stimulating Hormone 3.164 uIu/ml (0.300-4.500)
--- NOTE | 2025-05-28 08:23 | Billing Data ---
Date of Service May 27, 2025 Coding Level of Care Code 04681 SUB INP/OBS CARE
[2025-05-28] MEDS: FUROSEMIDE 40 MG/4 ML VIAL IV SCH (08:56)
[2025-05-28] MEDS: SPIRONOLACTONE 25 MG TAB PO SCH (08:57)
--- NOTE | 2025-05-28 09:29 | Hospitalist Progress Note ---
Date of Service May 28, 2025 Assessment & Plan (1) Bacteriuria: (2) HFrEF (heart failure with reduced ejection fraction): (3) Morbid obesity: (4) Frequent unifocal PVCs: (5) Ventricular bigeminy: (6) HTN (hypertension): (7) Dyspnea: Plan Pt is a 79 yo male with PMH of hypothyroidism, ventricular bigeminy, macular degeneration, sleep apnea, HTN, HLD, and hx of prostate CA who presented to ED with progressive SOB over the past 1-2 weeks after drinking more liquids at home due to pt's assumption that he has a kidney stone. Pt does not have a known history of CHF. #Dyspnea/Acute HFrEF Pt with progressive SOB, LE edema and abdominal distension after increasing fluids at home. In the show labs notable for mildly elevated Cr at 1.2, ALT of 90 ->78 -> 54 and BNP at 427 -> 456. WBC, Na, K+, troponin, AST, and alk phos are within normal limits. CXR read as pulmonary edema and cardiomegaly. Vitals are stable and continuous bigeminy noted on ECG and telemetry. Pt is followed by [facility] cardiology as an outpatient With VITALY Henriquez and Dr. Sandoval - Previous echocardiogram (2022): EF 40-45%, Severe hypokinesis at anterior and anterolateral as well as mild Mitral and tricuspid regurg. No noted history of prior CT reported. - Cardiology consulted for worsening HF with new echocardiogram 05/27/25 completed: EF 35-40% with severely dilated left ventricle, moderate to severe dilation of right ventricle and weakened right ventricular systolic function, and grade 1 diastolic dysfunction - Strict I/Os - Daily weights - heart healthy diet and sodium restriction < 2g per day - 40mg Lasix given in ED with partial resolution of SOB, continue Lasix 40mg QAM - Cardiology input appreciated, report potential PVC cardiomyopathy contributing to symptoms recommend: - Lexiscan nuclear stress test to assess for ischemia - Valsartan 80mg for LV dysfunction, increased metoprolol from 25mg qd to 50mg qd and amiodarone to 200mg qd - Continuation of loop diuretic and addition of Aldactone, will start at 25mg daily patient renal function stable - Upon d/c Consider outpatient follow-up with EP visual arts teacher and cardiac MRI #Bacteruria/Mild UTI like symptoms Recent history of difficulty passing urine. Pt has history of prostate cancer which was surgically treated and in remission. Pt does not report history of urinary retention. No reported evidence of passed stone, per patient mild bu rning, straining and dysuria during micturition that resolved 3 days ago - UA with reflex culture on admission positive for WBC, 4+ bacteria, 2+ LE - IV ceftriaxone 2g x1 given in ED - Await cultures #Chronic ventricular bigeminy Stable on ECG and telemetry. Increased dosages of rate control agents - Continue po metoprolol, increased to 50 mg - Continue po amiodarone, increased to 200 mg temporarily #Chronic conditions HTN- continue po amlodipine 5mg qd HLD- continue po ezetimibe 10mg qd Hypothyroidism- continue po levothyroxine 125mcg Macular degeneration- Continue PreserVision BID JACK- continue CPAP overnight Dispo: Med tele Diet: heart healthy DVT prophylaxis: SCDs Code: Full Admission and Anticipated Discharge Date Admission Date: May 26, 2025 Supervising Physician Co-Signing Physician Notes Resident Physician Supervision Note: I personally examined the patient and verified all fernandez points of history and exam, discussed case, and agree with decision making with Dr. Leal I discussed the case with the resident and agree with the findings and plan as documented in the note. Patient is seen in the company of his . All questions were answered at the bedside. Patient continues to feels much improved. Patient received an additional dose of IV lasix. He reports he tolerated the stress test, however, he will now need a cardiac catheterization tomorrow. Official results of lexiscan are not in the chart as of yet. Examination finds his heart rate is regular; lungs aare fairly clear with good excursion extremities are 1+ edema Reviewed CBC and chemistry reviewed cardiac biomarkers Discussed the case with Dr. Altamirano Stehekin [facility] cardiology Acute on chronic heart failure reduced ejection fraction treated with intravenous Lasix Continue his guideline medications, continue IV diuretics as needed. Patient has significant ectopy and this could be a cardiomyopathy from his ectopy. Patient also has sleep apnea and does have some right-sided heart failure changes due to this and this could be also part of why he has peripheral edema. Any exceptions or clarifications are listed here: Documented by: Saman Rankin MD Subjective Tono Tessa is a 79 y/o M with PMH of hypothyroidism, ventricular bigeminy, macular degeneration, sleep apnea, HTN, HLD, and hx of prostate CA who presented to ED with progressive SOB over the past 3 weeks after drinking more liquids at home due to pt's assumption that he has a kidney stone. On CPAP overnight. Patient feels much better today with no SOB at rest or with exertion. He does feel an uneasy feeling when he is lying down. Awaiting NST. Patient denies difficulties with urinating or stooling, chest pain, palpitations, cough, abdominal pain, nausea, vomiting, headache, fever and chills. Physical Exam Physical Exam: General: patient resting comfortably, NAD, non-toxic in appearance, answers questions appropriately. Heart: normal r/r, +S1/S2, regular, no m/r/g, no carotid bruits, no JVD Lungs: CTA b/l, equal air entry bilaterally, no rhonchi/wheezes Abd: +BS, soft, NT/ND Ext: 1+ LE edema b/l Results & Data Results & Data Vital Signs (Past 12 Hours) Vital Signs Temp Pulse Pulse Resp BP Pulse Ox O2 Del Method 05/28/25 08:33 36.9 C 68 18 160/71 H 94 Room Air 05/28/25 08:02 66 05/28/25 03:19 36.6 C 60 19 148/73 H 96 Room Air 05/27/25 23:07 36.6 C 65 18 129/75 95 Room Air Resident Activity Tracking Resident Involvement: Resident Care Provided Care Provided: Adult [facility] Medicine Resident Supervision Co-Signing Physician Notes Patient seen with 4 Sultana Stevenson and I agree with the plan as stated above Patient likely with HFrEF since early 2022 with echocardiogram at the time showing EF 40-45% worsened to 35-40% with severely dilated left and right ventricles, grade 1 diastolic dysfunction, and hypokinesis at charleen/anterolateral hermosillo. Patient has not had this level SOB/dyspnea before, but this is much improved after Lasix dose Patient is amenable to medication changes with Valsartan 80 mg, metoprolol increase to 50mg QD, amiodarone temporary increase to 200mg, and aldactone 25mg daily. As patient does not regularly use Lasix, it may be beneficial to use a PRN dosing when patient feels SOB. Patient and understands that patient's salt intake affects his fluid retention and thus it is important to limit salt consumption to < 2g per day. Cr: 0.95 and BUN/Cr: 22, K+: 4.5 Patient tolerating new medications well, and reports that he is back to his baseline this AM.
--- NOTE | 2025-05-28 10:18 | Cardiology Progress Note ---
Date of Service May 28, 2025 Assessment & Plan (1) HFrEF (heart failure with reduced ejection fraction): Plan: Continue IV diuresis as well as beta-xiao and amiodarone at this time. Depending on the results of his stress test further recommendations will follow. Ideally he should be treated with Entresto or RV and possibly Jardiance/Farxiga. (2) Frequent unifocal PVCs: Plan: Continue p.o. amiodarone for now. Liver function appears to be within normal limits, his TSH was normal at 3.1 his BNP was down to 456 today (3) Morbid obesity: Plan Await the results of the Lexiscan nuclear stress test to assess for ischemic component to his PVCs. If his stress test is unremarkable for ischemia medical therapy will be continued with beta-xiao and will add Entresto/ARB. The cardiomyopathy is likely related to the ventricular ectopy and we will get him set up for follow-up with Dr. Barahona who he is known to. Despite his size, he te lls me that up until recently, he was walking and riding a bike daily. Because of his baseline ECG will order Lexiscan nuclear stress to assess for ischemia. Would add ARB for LV dysfunction along with titrate up on the metoprolol for CHF. Would temporarily increase amio to 200mg daily. Cont with loop diuretic. If renal function allows, consider adding aldactone as well. Depending on the results further rec will follow. 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 Will have him follow up with EP post DC as well. ? Consider cardiac MRI as outpatient as well. Thanks you for the consult. Admission and Anticipated Discharge Date Admission Date: May 26, 2025 Supervising Physician Co-Signing Physician Notes Resident Physician Supervision Note: I personally examined the patient and verified all fernandez points of history and exam, discussed case, and agree with decision making with Dr. Leal I discussed the case with the resident and agree with the findings and plan as documented in the note. Patient is seen in the company of his . All questions were answered at the bedside. Patient feels much improved. Patient states he has had a few week insidious onset of increasing dyspnea which was first noticed by him being on the treadmill. He denies any recent chest pain or pressure he had negative serology for acute coronary syndrome on admission. He did of good diuresis with Lasix having 2500 mL out more than an Examination finds his heart to be distant but regular his lungs actually are fairly clear with good excursion extremities are 1+ edema Reviewed CBC and chemistry reviewed cardiac biomarkers Discussed the case with Dr. Altamirano Aditya [facility] [address] cardiology Acute on chronic heart failure reduced ejection fraction treated with intravenous Lasix Plans to progress to higher level of guideline based medications given his decrease in ejection fraction with plans for nuclear study to evaluate if there is profound ischemia or hibernating myocardium. Patient has significant ectopy and this could be a cardiomyopathy from his ectopy. Patient also has sleep apnea and does have some right-sided heart failure changes due to this and this could be also part of why he has peripheral edema. Any exceptions or clarifications are listed here: Documented By: Ulysses Buckley MD Subjective Underwent IV diuresis overnight he feels his breathing is slightly better. Mr. Reeves was seen today in cardiac follow-up. He he continues to have ventricular bigeminy and his PVC burden is around 50%. I saw him down in the nuclear medicine department where we performed his Lexiscan nuclear stress test. He tolerated the procedure well. We are waiting for his nuclear images to be obtained. He has no new complaints at this time. Review of Systems Review of Systems: All systems reviewed & are unremarkable except as noted in HPI & below Physical Exam Physical Exam: pleasant, jovial in NAD Respiratory: He still has some rales at the bases bilaterally Cardiovascular: normal sinus rhythm frequent ventricular ectopy his resting heart rate is in the 60s Edema has resolved Results & Data Vital Signs (Past 12 Hours) Vital Signs Temp Pulse Pulse Resp BP Pulse Ox O2 Del Method 05/28/25 08:33 36.9 C 68 18 160/71 H 94 Room Air 05/28/25 08:02 66 05/28/25 08:00 Room Air 05/28/25 03:19 36.6 C 60 19 148/73 H 96 Room Air 05/27/25 23:07 36.6 C 65 18 129/75 95 Room Air Laboratory Results Abnormal lab results 05/28/25 Range/Units 06:00 BUN/Creatinine Ratio 22.1 H (10-20) ALT 54 H (7-52) U/L B-Natriuretic Peptide 456 H (0-100) pg/ml Diagnostic Findings Echo from yesterday was reviewed. His ejection fraction is difficult to quantitate due to the frequency of his ventricular ectopy. He has marked srie-zi-dtim variability in his EF but the ejection fraction is likely moderately affected. Medications Administered Current Inpatient Medications Acetaminophen (Acetaminophen 325 Mg Tab) 650 mg PO Q4H PRN PRN Reason: Pain or Fever Stop: 06/25/25 22:23 Amiodarone HCl (Amiodarone 200 Mg Tab) 200 mg PO QDD ELIDA Stop: 06/26/25 16:29 Last Admin: 05/27/25 16:45 Dose: 200 mg Amlodipine Besylate (Amlodipine Besylate 5 Mg Tab) 5 mg PO QDD ELIDA Stop: 06/26/25 16:29 Last Admin: 05/27/25 16:44 Dose: 5 mg Ezetimibe (Ezetimibe 10 Mg Tab) 10 mg PO QDD ELIDA Stop: 06/26/25 16:29 Last Admin: 05/27/25 16:44 Dose: 10 mg Furosemide (Furosemide 40 Mg/4 Ml Vial) 40 mg IV QAM ELIDA Stop: 06/27/25 08:59 Last Admin: 05/28/25 08:56 Dose: 40 mg Ceftriaxone Sodium (Rocephin) 2,000 mg in 50 mls @ 100 mls/hr IV Q24H ELIDA Stop: 06/01/25 20:59 Last Infusion: 05/27/25 22:07 Dose: Infused Levothyroxine Sodium (Levothyroxine Sodium 125 Mcg Tablet) 125 mcg PO DAILYBB ELIDA Stop: 06/26/25 06:29 Last Admin: 05/28/25 06:25 Dose: 125 mcg Melatonin (Melatonin 3 Mg Tab) 3 mg PO HS PRN PRN Reason: Sleep Stop: 06/25/25 22:23 Metoprolol Succinate (Metoprolol Succ 50mg Ext Rel Tab) 50 mg PO QDD ELIDA Stop: 06/26/25 16:29 Last Admin: 05/27/25 16:44 Dose: 50 mg Multivitamins/Minerals (Cerovite Adv Formula Tab) 1 tab PO BID ELIDA Stop: 06/25/25 22:23 Last Admin: 05/28/25 08:57 Dose: 1 tab Ondansetron HCl (Ondansetron Inj 2 Mg/Ml 2 Ml Vial) 4 mg IV Q6H PRN PRN Reason: Nausea Stop: 06/25/25 22:23 Polyethylene Glycol (Polyethylene (Miralax) 17 Gm Pack) 17 gm PO DAILY PRN PRN Reason: Constipation Stop: 06/25/25 22:23 Spironolactone (Spironolactone 25 Mg Tab) 25 mg PO [facility] Stop: 06/27/25 08:59 Last Admin: 05/28/25 08:57 Dose: 25 mg Valsartan (Valsartan 80 Mg Tab) 80 mg PO [facility] Stop: 06/26/25 10:29 Last Admin: 05/28/25 08:57 Dose: 80 mg ECG Additional Comments: Normal sinus rhythm ventricular bigeminy right bundle branch block rightward axis his PVCs have a right bundle branch block morphology
[2025-05-28] MEDS: REGADENOSON 0.4 MG/5 ML SYR IV ONE (11:11)
[2025-05-28] MEDS ORDERED: cefTRIAXone SODIUM 2,000 MG/50 ML BAG IV SCH (14:15)
--- NOTE | 2025-05-28 17:57 | Myocardial Perfusion Study ---
Date of Service May 28, 2025 Myocardial Perfusion Study [facility] Myocardial Perfusion Study Report LEXISCAN STRESS MYOCARDIAL PERFUSION IMAGING STUDY Indication: Heart failure, dyspnea on exertion Brief description: Rest portion-at 1357 the patient was injected with 25.9 mCi Tc 99m Cardiolite IV. 1 hour following injection, myocardial perfusion imaging was performed in multiple projections. Stress portion-baseline heart rate, blood pressure, and EKG were obtained. These same parameters were monitored for 3 minutes of infusion and 3 minutes recovery. They were intermittently recorded. Patient was infused with 0.4 mg Lexiscan IV followed immediately by injection of 23.8 mCi Tc 99m Cardiolite IV. 30 minutes following injection, myocardial perfusion imaging was performed in multiple projections similar to those utilized for the rest portion. No symptoms were reported during the procedure. Note: This was a 2-day protocol. Hemodynamic and electrocardiographic findings: 1. Resting heart rate was 64 bpm and bill to a maximum of 81 bpm with Lexiscan infusion. 2. Resting blood pressure was 137/75 mmHg and bill to a maximum of 142/80 mmHg with Lexiscan infusion. 3. Baseline EKG demonstrated sinus rhythm, right bundle branch block, and frequent PVCs in a pattern of bigeminy. There was 1.[address] elevations in leads II, III, and aVF with Lexiscan infusion. Myocardial perfusion imaging findings: 1. Raw data analysis demonstrates obesity. Otherwise good quality study. This study is adequate for interpretation. 2. Gated myocardial perfusion imaging is uninterpretable secondary to bigeminy. The LV does appear enlarged on these images. 3. There is a large in size (18% of myocardium), severe intensity, partially reversible MPI defect involving the distal anterior, distal lateral, distal inferior, and entire apex. These findings are highly suggestive of LAD territory infarct and significant maikol-infarct ischemia. 4. Study is severely abnormal. Moderate risk of ischemia. No prior study for comparison. Recommend definitive evaluation by coronary angiography as clinically indicated. [facility]ocardial perfusion code Indication for Procedure (1) HFrEF (heart failure with reduced ejection fraction): (2) Ventricular bigeminy: Procedure Code Procedure 1: Myocardial Perfusion Codes: 85532 Cardiovascular Stress Test, multiple Procedure 2: Myocardial Perfusion Codes: 44924 Cardiovascular Stress Test, supervision only Procedure 3: Myocardial Perfusion Codes: 93916 Cardiovascular Stress Test, interpretation and report
[2025-05-29 06:49] LABS: Hematocrit (blood only) 47.4 % (42.0-52.0); Hemoglobin 15.8 g/dl (14.0-18.0); Immature Granulocytes # (auto) 0.05 K/uL (0.01-0.20); Immature Granulocytes % (auto) 0.5 %; Mean Corpuscular Hemoglobin 31.2 pg (25.0-34.0); Mean Corpuscular Volume 93.5 fL (80.0-100.0); Platelet Count 234 K/uL (130-400); RDW Standard Deviation 50.2 fL (36.4-46.3); Red Blood Count 5.07 M/uL (4.70-6.10); White Blood Count 9.54 K/ul (4.8-10.8)
[2025-05-29 07:13] LABS: Alanine Aminotransferase 41.0 U/L (7-52); Albumin Globulin Ratio 1.3 (0.9-2); Alkaline Phosphatase 57.0 U/L (34-104); Anion Gap 8.0 (3-11); Bilirubin,Total 0.8 mg/dl (0.2-1.0); Blood Urea Nitrogen 31.0 mg/dl (6-23); Calcium 9.2 mg/dl (8.6-10.3); Carbon Dioxide 27.0 mmol/L (21-32); Chloride 105.0 mmol/L (98-107); Creatinine Clr Calc Pharmacy 53.2 ml/min; Globulin 2.9 gm/dl (2.5-4.0); Glucose 92.0 mg/dl (70-99(Fasting)); Potassium 4.4 mmol/L (3.5-5.1); Sodium 140.0 mmol/L (136-145); Total Protein 6.6 gm/dl (6.0-8.3)
--- NOTE | 2025-05-29 08:16 | Pre Anesthesia Assessment ---
Date of Service May 29, 2025 Pre Sedation Assessment Vital Signs Temp Pulse Pulse Resp BP BP Pulse Ox 05/29/25 07:51 34 L 18 155/77 H 94 05/29/25 07:39 36.7 C 61 115/76 96 05/29/25 03:22 36.6 C 68 20 120/66 94 05/28/25 23:00 36.5 C 62 21 120/80 94 05/28/25 22:22 77 05/28/25 21:00 05/28/25 19:30 36.6 C 68 21 144/65 H 95 05/28/25 17:15 57 L 05/28/25 16:30 36.4 C L 62 16 158/79 H 96 05/28/25 11:36 37.0 C 62 18 148/89 H 93 05/28/25 08:33 36.9 C 68 18 160/71 H 94 O2 Del Method 05/29/25 07:51 Room Air 05/29/25 07:39 Room Air 05/29/25 03:22 Room Air 05/28/25 23:00 Room Air 05/28/25 22:22 05/28/25 21:00 CPAP 05/28/25 19:30 Room Air 05/28/25 17:15 05/28/25 16:30 Room Air 05/28/25 11:36 Room Air 05/28/25 08:33 Room Air Cardiovascular RRR, no murmur, no edema Respiratory normal respiratory effort, lungs clear to auscultation Pre-Sedation Airway Assessment Smoking Status: Never smoker Hx Sleep Apnea: Yes Short, Thick Neck: Yes Thyromental Distance: < 3.5 Finger Breadths Oral Cavity: + Dentures Mallampati Class: III ASA: ASA4 NPO Status Date of Last Intake of Fluids: 05/29/25 Time of Last Intake of Fluids: 06:00 Notes The planned sedation has been discussed with the patient. Informed Consent was obtained. I have identified the patient, determined the appropriateness of sedation and have assessed the patient immediately prior to the procedure. All medicine(s) and interventions are by my order.
--- NOTE | 2025-05-29 08:19 | Billing Data ---
Date of Service May 28, 2025 Coding Level of Care Code 02830 SUB INP/OBS CARE MIN
--- NOTE | 2025-05-29 08:55 | Post Anesthesia Assessment ---
Date of Service May 29, 2025 Post Sedation Assessment Vital Signs Temp Pulse Pulse Resp BP BP Pulse Ox 05/29/25 07:51 34 L 18 155/77 H 94 05/29/25 07:39 36.7 C 61 115/76 96 05/29/25 03:22 36.6 C 68 20 120/66 94 05/28/25 23:00 36.5 C 62 21 120/80 94 05/28/25 22:22 77 05/28/25 21:00 05/28/25 19:30 36.6 C 68 21 144/65 H 95 05/28/25 17:15 57 L 05/28/25 16:30 36.4 C L 62 16 158/79 H 96 05/28/25 11:36 37.0 C 62 18 148/89 H 93 O2 Del Method 05/29/25 07:51 Room Air 05/29/25 07:39 Room Air 05/29/25 03:22 Room Air 05/28/25 23:00 Room Air 05/28/25 22:22 05/28/25 21:00 CPAP 05/28/25 19:30 Room Air 05/28/25 17:15 05/28/25 16:30 Room Air 05/28/25 11:36 Room Air Recovery Score Activity: Moves 4 extremities Respiration: Deep Breath/Cough Circulation: +/-20% PreAnes Value Consciousness: Fully Awake Oxygen Saturation: > 92% On Room Air Discharge Sedation Level of Care: Fast Track Phase II Post Sedation Plan On clinical assessment, the patient appears to have tolerated the sedation without complications. Patient is recovering as anticipated. Patient will continue to be monitored by nursing and may be discharged when sedation discharge criteria are met per below protocol. Upon Completions of procedure up to 15 minutes continue every 5 minute vital signs and the P.A.R. score; then discharge to a Phase I or Fast Track to Phase II per the following guidelines: * Discharge Patient to appropriate Phase II area if PAR is 8 or greater or return to pre- procedure baseline. The post - procedure orders will be as directed. * If PAR score is less than 8 or not return to pre-procedure baseline then patient will follow Phase I monitoring till PAR is reached for Phase II. The Phase I may be done in procedure room or may call to secure a Phase I area. * If naloxone or flumazenil are used for reversal, hold in Phase I for continued monitoring from when last reversal dose was given for a minimum of 60 minutes or longer pending the nurse and/or physician discretion of patient condition before discharge to Phase II. Please call the Sedation Physician to re-evaluate and complete post-note for discharge to Phase II area. Do NOT discharge from procedure sedation or Phase 1 until post- sedation evaluation note is complete by procedure /sedation MD Sedation Discharge Instructions to be given to the patient at discharge to home. [facility] Procedure Codes (Charges) Indication for Procedure Indication for procedure: CHF abnormal stress Sedation/Anesthesia Procedure 1: Sedation/Anesthesia: 88874 Mod Sedation by the same physician;Init15 Min Child Age 5 & Up (Initial 15 minutes, start time 0836, end time 0848)
[2025-05-29] MEDS: HEPARIN (PORCINE) 1000 UNIT/ML 10 ML (CATH LAB USE ONLY) ONE (09:02)
[2025-05-29] MEDS: OPTIRAY 350 ONE (09:03)
[2025-05-29] MEDS: ASPIRIN 81 MG CHEW ONE (09:03)
[2025-05-29] MEDS: MIDAZOLAM HCL 1 MG/ML 2ML VIAL ONE (09:03)
[2025-05-29] MEDS: NITROGLYCERIN/D5W 100MCG/ML 20ML SYR ONE (09:04)
--- NOTE | 2025-05-29 09:58 | Cardiac Catheterization ---
[facility] Data: Insurance Verification Clerk Cardiac Status Clinical evaluation leading to the procedure CAD Presenation: Positive Stress Test Anginal Classification: CCS III (Dyspnea) Heart Failure: NYHA Class: CCS IV Cardiogenic Shock within 24 Hours: No Cardiac Arrest within 24 Hours: No Imaging Studies Past 6 Months: Yes Stress Testing w/SPECT MPI: Yes - Positive Coronary Anatomy Dominant: Right Left Main (% Stenosis): Normal LAD (% Stenosis): Mid (40%) D1 (% Stenosis): Normal D2 (% Stenosis): Normal Circumflex (% Stenosis): Normal OM1 (% Stenosis): Normal OM2 (% Stenosis): Normal RCA (% Stenosis): Proximal (Diffuse mild less than 30%), Mid (Diffuse mild less than 30%) and Distal (Luminal irregularities) R PDA (% Stenosis): Normal R PL1 (% Stenosis): Normal Diagnostic Physicians Name: Rashad Saunders MD, PhD Closure Device Percutaneous Entry Location: Radial Closure Device: Radial Band Recommendations: Medical Therapy and/or Counseling Intraprocedure Events Significant Disection: No Perforation: No Cardiac Cath Procedure Full Procedure Date May 29, 2025 Pre-Procedure Diagnosis Pre-Procedure Diagnosis: Positive Stress Test and Cardiomyopathy AUC Score AUC Score: 07 Post-Procedure Diagnosis Post-Procedure Diagnosis: Mild CAD and Elevated Intracardiac Pressures Procedure(s) Performed Procedure(s) Performed: Coronary Angiography and Left Heart Cath [employer] Rashad Saunders MD, PhD Estimated Blood Loss Estimated Blood Loss: Less than 3 cc Medication(s) Medication(s): Fentanyl, Heparin, Lidocaine 1%, Nicardipine, Nitroglycerin and Versed Summary of Findings Brief description: Patient was brought to the cardiac catheterization suite where he was shaved and prepped in a sterile fashion. Sedated using IV Versed and fentanyl. Soft tissues of the right wrist were anesthetized using 2 mL of 1% Xylocaine. The right radial artery was accessed using a modified Seldinger technique and a 6 [place] radial artery glide sheath was placed. Patient was provided anticoagulation with IV heparin and antispasmodics including nicardipine and nitroglycerin. All catheters were advanced and exchanged over a 0.035 J-tip wire. Left coronary angiography in orthogonal views with a 5 [place] 4 diagnostic catheter. Right coronary angiography in orthogonal views with a 5 [place] 4 diagnostic catheter. Left heart cath was performed with a 5 [place] 4 diagnostic catheter. All catheters were removed. Radial artery sheath was removed. Hemostasis was obtained using a TR band. Patient remained hemodynamically stable and asymptomatic. He was returned to the recovery area. This ended the case. Coronary angiography findings: KZC-jmggg-znjpqyo vessel bifurcating into LAD and circumflex. No more than mild luminal irregularities. CRC-tbhxt-kkjjlyd and reaches the apex. Gives a large caliber high arising, branching first diagonal. It also gives a medium caliber second diagonal. Proximal LAD with luminal irregularities, mid segment with up to 40% stenosis before the second diagonal and then the distal vessel becomes smaller in caliber but has no disease. JBt-hzdcx-zirdajh and nondominant. Travels in the AV groove giving an atrial branch followed by a small OM1 and then a medium caliber branching OM 2. Terminates distally. There is no angiographically evident disease in the circumflex or its branches. RCA-this is large caliber and branching. There is diffuse mild disease of less than 20 to 30% stenosis. Distally the vessel bifurcates into a large caliber PDA and a large multi branching posterolateral. These vessels have luminal irregularities. Of note, at the level of the proximal to mid RCA transition there is an abnormal angiographic finding. Initially concerned for complex chronic dissection but further review reveals this is just complex branching vessel which happens to course across the RCA at that point. Therefore, no stenotic lesion or dissection. Note: Patient with frequent PVCs often in a pattern of bigeminy. On the monitor the PVCs are clear but the tanacross QRS complexes are very small. The monitor recorded heart rate does not correlate to the tanacross complexes, only to the PVCs. Therefore, the true heartbeat is higher than what is recorded. The simultaneous blood pressure monitoring demonstrates drop in blood pressure after each PVC. Blood pressure is maintained appropriately during the tanacross QRS complexes. Summary: 1. Mild nonocclusive coronary artery disease as described. 2. Frequent PVCs with appreciable hemodynamic alterations post PVC. This may be contributing to the patient's CHF. 3. Elevated left ventricular pressure. I recommend continued diuresis. Hemodynamics Rest Ao:: 122/62 mmHg Final Ao: 146/83 mmHg LV: 150/11 mmHg, LVEDP ranging 18 to 25 mmHg. Recommendations Recommendations: Medical Therapy and/or Counseling Radiation Exposure (mGy) 926 mGy, fluoroscopy time 2.3 minutes Contrast (mls) 70 cc Anesthesia 1 mg Versed, 25 mcg fentanyl IV. Start 0836, and 0848 Procedural Complication(s) None Disposition Recovery Room\PACU I attest to the content of the Intraoperative Record and any orders documented therein. Any exceptions are noted below. [facility] Card Cath Procedure Codes Cardiac Catheterization Procedure 1: Cardiovascular Cath Procedures: 83874 Coronaries and LHC (+/-LV) Moderate Sedation Procedure 1: Sedation/Anesthesia: 90019 Mod Sedation by the same physician;Init15 Min Child Age 5 & Up (Initial 15 minutes. Start time 0836, end time 0848) PG Care Time/CCT Total # of Minutes Spent Total Time Spent with Patient: Total time spent is greater than 50% in coordination of care (as documented) at patient's floor/unit and/or counseling patient:
--- NOTE | 2025-05-29 10:33 | Hospitalist Progress Note ---
Date of Service May 29, 2025 Assessment & Plan (1) Bacteriuria: (2) HFrEF (heart failure with reduced ejection fraction): (3) Morbid obesity: (4) Frequent unifocal PVCs: (5) Ventricular bigeminy: (6) HTN (hypertension): (7) Dyspnea: Plan Pt is a 79 yo male with PMH of hypothyroidism, ventricular bigeminy, macular degeneration, sleep apnea, HTN, HLD, and hx of prostate CA who presented to ED with progressive SOB over the past 1-2 weeks after drinking more liquids at home due to pt's assumption that he has a kidney stone. Pt does not have a known history of CHF. #Dyspnea/Acute HFrEF Pt with progressive SOB, LE edema and abdominal distension after increasing fluids at home. In the show labs notable for mildly elevated Cr at 1.2, ALT of 90 ->41 and BNP at 427 -> 456. WBC, Na, K+, troponin, AST, and alk phos are within normal limits. CXR read as pulmonary edema and cardiomegaly. Vitals are stable and continuous bigeminy noted on ECG and telemetry. Pt is [facility] by [facility] cardiology as an outpatient With VITALY Henriquez and Dr. Sandoval - Previous echocardiogram (2022): EF 40-45%, Severe hypokinesis at anterior and anterolateral as well as mild Mitral and tricuspid regurg. No noted history of prior [place] reported. - Cardiology consulted for worsening HF with new echocardiogram 05/27/25 completed: EF 35-40% with severely dilated left ventricle, moderate to severe dilation of right ventricle and weakened right ventricular systolic function, and grade 1 diastolic dysfunction - Strict I/Os - Daily weights - heart healthy diet and sodium restriction < 2g per day - 40mg Lasix given in ED with partial resolution of SOB, continue Lasix 40mg QAM - Cardiology input appreciated, report potential PVC cardiomyopathy contributing to symptoms recommend: - Valsartan 80mg for LV dysfunction, increased metoprolol from 25mg qd to 50mg qd and amiodarone to 200mg qd - Continuation of loop diuretic and addition of Aldactone, will start at 25mg daily patient renal function stable - Upon d/c Consider outpatient follow-up with EP drug safety data management specialist and cardiac MRI - Lexiscan nuclear stress test showed: -The LV does appear enlarged on these images. -A large in size (18% of myocardium), severe intensity, partially reversible MPI defect involving the distal anterior, distal lateral, distal inferior, and entire apex. -Suggestive of LAD territory infarct and significant maikol-infarct ischemia. -Await cardiology rec - Cardiac catheterization performed this morning 1. Mild nonocclusive coronary artery disease 2. Frequent PVCs with appreciable hemodynamic alterations post PVC. This may be contributing to the patient's CHF. 3. Elevated left ventricular pressure. Recommend continued diuresis. #Bacteruria/Mild UTI like symptoms Recent history of difficulty passing urine. Pt has history of prostate cancer which was surgically treated and in remission. Pt does not report history of urinary retention. No reported evidence of passed stone, per patient mild burning, straining and dysuria during micturition that resolved 3 days ago - UA with reflex culture on admission positive for WBC, 4+ bacteria, 2+ LE - IV ceftriaxone 2g x1 given in ED. Continue antibiotics. - Urine cultures positive for E. Coli #Chronic ventricular bigeminy Stable on ECG and telemetry. Increased dosages of rate control agents - Continue po metoprolol, increased to 50 mg - Continue po amiodarone, increased to 200 mg temporarily #Chronic conditions HTN- continue po amlodipine 5mg qd HLD- continue po ezetimibe 10mg qd Hypothyroidism- continue po levothyroxine 125mcg Macular degeneration- Continue PreserVision BID JACK- continue CPAP overnight Dispo: [employer] Diet: heart healthy DVT prophylaxis: SCDs Code: Full Admission and Anticipated Discharge Date Admission Date: May 26, 2025 Subjective Underwent IV diuresis overnight he feels his breathing is slightly better. Mr. Reeves was seen today in cardiac follow-up. He he continues to have ventricular bigeminy and his PVC burden is around 50%. I saw him down in the nuclear medicine department where we performed his Lexiscan nuclear stress test. He tolerated the procedure well. We are waiting for his nuclear images to be obtained. He has no new complaints at this time. Physical Exam Physical Exam: General: patient resting comfortably, NAD, non-toxic in appearance, answers ques tions appropriately. Heart: normal r/r, +S1/S2, regular, no m/r/g, no carotid bruits, no JVD Lungs: CTA b/l, equal air entry bilaterally, no rhonchi/wheezes Abd: +BS, soft, NT/ND Ext: 1+ LE edema b/l Results & Data Results & Data Vital Signs (Past 12 Hours) Vital Signs Temp Pulse Pulse Resp BP BP Pulse Ox 05/29/25 07:51 34 L 18 155/77 H 94 05/29/25 07:39 36.7 C 61 115/76 96 05/29/25 03:22 36.6 C 68 20 120/66 94 05/28/25 23:00 36.5 C 62 21 120/80 94 05/28/25 22:22 77 05/28/25 21:00 O2 Del Method 05/29/25 07:51 Room Air 05/29/25 07:39 Room Air 05/29/25 03:22 Room Air 05/28/25 23:00 Room Air 05/28/25 22:22 05/28/25 21:00 CPAP
[2025-05-29 13:17] VITALS: O2SAT 93
[2025-05-29 15:35] VITALS: PULSE 68; RESP 20; TEMP 97.5
[2025-05-29 17:16] VITALS: BP 129/72
--- NOTE | 2025-05-29 17:41 | Discharge Summary ---
Date of Service May 29, 2025 Admission HPI Per Admitting Provider Pt is a 79 yo male with PMH of hypothyroidism, ventricular bigeminy, macular degeneration, sleep apnea, HTN, HLD, and hx of prostate CA who presented to ED with progressive SOB. Pt is at bedside who assisted with HPI. Pt states all symptoms started 2 weeks ago with difficulty urinating with assumption that pt had a kidney stone. Pt reports he was trying to drink more fluids to flush out the stone and began having more distension in his abdomen and swelling in his lower legs. These symptoms progressed to feeling he was gaining weight and then intermittent SOB. Pt found that laying flat or reclined was more difficult to breath and sitting up provided some relief. Pt also noted increased SOB with exertional activities such as walking community distances or up a flight of stairs. Pt follows with [facility] cardiology and was scheduled to have an echocardiogram on Jun 05, 2025. Pt has had echos in the past, but it has reportedly been a couple years. Pt denies chest pain or tightness, cough, dizziness/lightheadedness, fever/chills, abdominal pain, nausea, vomiting, diarrhea, constipation, numbness/tingling, new myalgias/arthralgias Pt says that while his ability to urinate has improved over the last week, his urine continues with a "funny smell". He denies dysuria, hematuria, seeing a stone in his urine or suprapubic pain/tenderness. Principal Diagnosis Acute on chronic HFrEF Discharge Exam General: patient resting comfortably, NAD, non-toxic in appearance, answers questions appropriately. Skin: warm, dry, intact HEENT: NC/AT, anicteric sclera, conjunctiva without injection, moist mucus membranes. Heart: +S1/S2, regular, no m/r/g Lungs: equal air entry bilaterally, no rales/rhonchi/wheezes Abd: +BS, soft, NT/ND Ext: warm, no clubbing/cyanosis or edema Neuro: nonfocal, speech intact, no facial droop, moving all extremities. Discharge Data Allergies Allergy/AdvReac Type Severity Reaction Status Date / Time No Known Allergies Allergy Verified 05/26/25 19:27 Consultations 05/27/25 08:16 Consult Cardiology Routine 05/29/25 01:38 Consult Cardiac Catheterization Routine 05/29/25 17:08 [facility] [place] CHF Program Referral Routine Procedures Performed Operation Date: 05/29/25 08:00 Actual Procedures p Cineradiography w/Routine Exam - Rashad Saunders MD, PhD p Cath, Left with Cors and Vent - Rashad Saunders MD, PhD Ordered Studies 05/29/25 08:19 CL Cath Imgs for PACS use only Routine Hospital Course (1) Bacteriuria: (2) HFrEF (heart failure with reduced ejection fraction): (3) Morbid obesity: (4) Frequent unifocal PVCs: (5) Ventricular bigeminy: (6) HTN (hypertension): (7) Dyspnea: Plan #Dyspnea/Acute HFrEF Pt with progressive SOB, LE edema and abdominal distension after increasing fluids at home. In the show labs notable for mildly elevated Cr at 1.2, ALT of 90 ->78 -> 54 and BNP at 427 -> 456. WBC, Na, K+, troponin, AST, and alk phos are within normal limits. CXR read as pulmonary edema and cardiomegaly. Vitals are stable and continuous bigeminy noted on ECG and telemetry. [facility] With VITALY Henriquez and Dr. Sandoval - Previous echocardiogram (2022): EF 40-45%, Severe hypokinesis at anterior and anterolateral as well as mild Mitral and tricuspid regurg. No noted history of prior [place] reported. - Cardiology consulted for worsening HF with new echocardiogram 05/27/25 completed: EF 35-40% with severely dilated left ventricle, moderate to severe dilation of right ventricle and weakened right ventricular systolic function, and grade 1 diastolic dysfunction - Strict I/Os - Daily weights - heart healthy diet and sodium restriction < 2g per day - 40mg Lasix given in ED with partial resolution of SOB, continue Lasix 40mg QAM - Cardiology input appreciated, report potential PVC cardiomyopathy contributing to symptoms recommend: - Lexiscan nuclear stress test to assess for ischemia - Valsartan 80mg for LV dysfunction, increased metoprolol from 25mg qd to 50mg qd and amiodarone to 200mg qd - Continuation of loop diuretic and addition of Aldactone, will start at 25mg daily patient renal function stable - Upon d/c Consider outpatient follow-up with EP blister packing machine tender and cardiac MRI #Bacteruria/Mild UTI like symptoms Recent history of difficulty passing urine. Pt has history of prostate cancer which was surgically treated and in remission. Pt does not report history of urinary retention. No reported evidence of passed stone, per patient mild burning, straining and dysuria during micturition that resolved 3 days ago - UA with reflex culture on admission positive for WBC, 4+ bacteria, 2+ LE - IV ceftriaxone 2g x1 given in ED, daily IV ceftriaxone started - Cx positive for paulson-sensitive E. coli, Cefpodoxime 100mg BID for 6 days initiated at d/c for total 10 day course #Chronic ventricular bigeminy Stable on ECG and telemetry. Increased dosages of rate control agents - Continue po metoprolol, increased to 50 mg - Continue po amiodarone, increased to 200 mg temporarily; discuss medication change with cardiology #Chronic conditions HTN- continue po amlodipine 5mg qd HLD- continue po ezetimibe 10mg qd Hypothyroidism- continue po levothyroxine 125mcg Macular degeneration- Continue PreserVision BID JACK- continue CPAP Total Time Total Time Spent Total Time Spent (In Minutes): See attending attestation Discharge Plan Discharge Items Patient Disposition: Home - Self-Care Reason For Visit: DYSPNEA Discharge Diagnosis: Acute on chronic HFrEF Condition on Discharge: Good Activity: Per Instructions section Non-emergency contact: Primary Care Provider and Driver License Reviewing Officer Call non-emergency contact if: your symptoms worsen Follow-up/Referrals: Dipika Rios [Primary Care Provider] - Diet: Heart Healthy and Low Sodium (2gm) Addtl Attending Provider Instructions: You were admitted to the hospital for acute shortness of breath. You were treated with IV Lasix which is a diuretic that helps you remove fluid that has moved into your tissues and lungs. While at the hospital a chest x-ray was completed that showed increased pulmonary vascular congestion and an enlarged heart. This basically means that your heart is straining to supply blood to your body and when this fluid gets backed up because the heart is not pumping as strong as it usually does this fluid can accumulate in your lungs. While in the hospital an echocardiogram was completed that showed a decreased ejection fraction or strength of your hear pump and enlargement of your heart. A lexiscan stress test showed that there were some areas of ischemia in areas of your heart and thus a catheterization was completed to make sure that none of your coronary vessels were congested or clogged. While this test did not reveal any areas that needed to be dilated or a stent placed it did show that your heart was struggling due to the excess fluid and worsening of the pump. To prevent future events of this congestion and shortness of breath your medications have been modified to account for this heart failure with reduced ejection fraction. The medications that you have been started on are outlined below and bolded. Please take these medications as instructed and follow up with your cardiology team with Dr. Sandoval and Brynn Henriquez as scheduled on June 08 and discuss any medications that should be reduced or changed specifically Amiodarone that was increased to 200mg from 100mg. It is also recommended that you follow with a EP blister packing machine tender such as Dr. Barahona that you have seen in the past to evaluate your arrhythmia or abnormal heart rhythms. Please discuss setting up this appointment at your cardiology appointment on June 08. It is also important that you modify your diet to eat no more than 2000mg of sodium or 2 grams per day, for better control try and consume no more than 1500mg of sodium per day or 1.5 grams per day. Sodium increases your blood pressure and can also increase your fluid retention which will directly affect the fluid build up in your body. In addition you are being treated for a UTI with antibiotics, you have gotten 4 doses so far and an antibiotic has been sent to your pharmacy for you to pick out hand to complete a total 10 day course, the details are outlined below. A discharge summary will be sent to your primary care physician to ensure continuity of care. Please bring this discharge summary with you to your next office appointment so that your provider can review it at that time. Follow-up appointments: Make a follow-up appointment with your PCP within the next week. It is very important that you follow up with them shortly after discharge from the hospital. Medications: Your medication list has been reviewed and reconciled upon discharge to ensure accuracy and continuity of care. An updated list of all your medications is included with your hospital discharge paperwork. Please review this list closely, and make note of any changes. We increased a home medication called Metoprolol and sent this to your pharmacy. Take Metoprolol succinate ER 50mg daily We increased a home medication called Amiodarone and sent this to your pharmacy. Take Amiodarone 200mg daily We sent a new medication called Valsartan to your pharmacy. Please take Valsartan 40mg twice per day or approximately 12 hours apart. We sent a new medication called Lasix to your pharmacy. Please take Lasix 40mg once per day in the morning We sent a new medication called Aldactone to your pharmacy. Please take Aldactone 25mg once per day in the morning We sent a new antibiotic medication called cefpodoxime to your pharmacy. Please take cefpodoxime 100mg twice per day or approximately 12 hours apart for the next 6 days. This will complete 10 days of therapy for your UTI, and a total of 12 pills will be provided by your pharmacy. Take your medications as instructed; do not skip a dose of your medicines. Make sure all of your doctors know every medicine you are taking (including hhmg-xih-xwdzjby medicines, vitamins, and supplements). Call your primary care provider before taking any new medicines (including zkks-lcf-evtqkcb medicines, vitamins, and supplements), because some of these may interact with your current medications, or may make your symptoms worse. Tell your primary care provider if you cannot afford your medications. CONTACT YOUR PRIMARY CARE PROVIDER if you experience any of the following: Difficulty following your treatment plan, or difficulty taking medications CALL 911 OR GO TO THE EMERGENCY DEPARTMENT if you experience any of the following: Sudden, severe abdominal pain or nausea/vomiting Severe chest pain, or chest pain that radiates (moves) to your jaw or arm Sudden, severe shortness of breath or difficulty breathing Thank you for allowing us to participate in your care. Pending Studies at Discharge: No Stand-Alone Forms: My [facility], Smoking Cessation Medications and DC Order Prescriptions: New furosemide [Lasix] 40 mg tablet 40 mg PO DAILY Qty: 30 0RF spironolactone [Aldactone] 25 mg tablet 25 mg PO QAM Qty: 30 0RF cefpodoxime 100 mg tablet 100 mg PO BID Qty: 12 0RF Rx Instructions: must administer with a meal/food metoprolol succinate 50 mg capsule,sprinkle,ER 24hr 50 mg PO DAILY Qty: 30 0RF amiodarone 200 mg tablet 200 mg PO DAILY Qty: 30 0RF valsartan 40 mg tablet 40 mg PO BID Qty: 60 0RF Continued levothyroxine 125 mcg Tablet 125 mcg PO QAM PreserVision AREDS-2 250-90-40-1 mg Capsule 1 tab PO BID amlodipine 5 mg tablet 5 mg PO QDD triamcinolone acetonide 0.025 % cream 1 applic TOPICAL BID Rx Instructions: STARTED 05/15/25 FOR 14 DAYS. ezetimibe 10 mg tablet 10 mg PO QDD Discontinued metoprolol succinate 25 mg Tablet Extended Release 24 Hr 25 mg PO QDD amiodarone 100 mg Tablet 100 mg PO QDD Discharge Orders: Discharge Order- CHF (Routine); Ordered 05/29/25 Ordered By: Isidro Leal Admission Data Admit Date/Time: 05/26/25 20:24 Attending Provider: Saman Rankin Admit Provider: Mary Gregory Primary Care Provider: Dipika Rios Other Providers: Brynn Henriquez; Rashad Saunders; Aleksandra Gonzalez Resident Activity Tracking Resident Involvement: Resident Care Provided Care Provided: Adult Hospital Medicine
--- NOTE | 2025-05-30 06:42 | Electrocardiogram Report ---
Test Reason : Blood Pressure : */* mmHG Vent. Rate : 71 BPM Atrial Rate : 71 BPM P-R Int : 224 ms QRS Dur : 130 ms QT Int : 432 ms P-R-T Axes : 49 211 24 degrees QTcB Int : 469 ms Sinus rhythm with 1st degree A-V block with frequent Premature ventricular complexes in a pattern of bigeminy Indeterminate axis Right bundle branch block Septal infarct , age undetermined Abnormal ECG No previous ECGs available Confirmed by Bertram Diop ([id number]) on 05/30/2025 6:42:17 AM Referred By: Dipika Rios Confirmed By: Bertram Diop
[2025-05-30] MEDS ORDERED: VALSARTAN 80 MG TAB PO SCH ×2 (09:00)
== END 2025-05-29 17:46 | disposition home or self-care (01) | DRG 286 ==
LOC: ED 17:29 → SUATTDRO 20:24 → 2S 20:24